=== PATIENT | male | born 1995 | race Caucasian/White ===

== ENCOUNTER → 2016-12-30 | Outpatient (CLI) | payer OTHER ==
[~2016-12-30] MED LIST: LIDOCAINE 1%, 20ML ONE; OMNIPAQUE 300 MG/ML, 10ML VIAL ONE; ROPivacaine/PF 0.2%, 10 ML ONE
== END | disposition home or self-care (01) ==
LOC: RAD 08:46
PROVIDERS: ATTEND Orthopaedic Surgery
DX: M25.551 Pain in right hip (principal)
CPT/HCPCS: 73525; 73722; J2795; J3490; Q9967